=== PATIENT | female | born 1995 | race African-American/Black ===

== ENCOUNTER 2021-08-07 10:07 | Emergency (ER) | payer MEDICAID, OTHER ==
[~2021-08-07] VITALS: Ht 157.5 cm; Wt 54.4 kg
[2021-08-07 10:57] VITALS: BP 108/69
[2021-08-07] MEDS ORDERED: LORazepam 0.5 MG TAB PO ONE ×2 (11:15)
== END 2021-08-07 12:15 | disposition home or self-care (01) ==
LOC: ER 10:07
DX: F41.8 Other specified anxiety disorders (principal)
CPT/HCPCS: 71046

== ENCOUNTER 2022-08-21 13:12 | Emergency (ER) | payer MEDICAID ==
[~2022-08-21] VITALS: Ht 167.6 cm; Wt 56.1 kg
[2022-08-21 13:31] VITALS: BP 101/60
[2022-08-21 14:12] LABS: Urine Bacteria NONE SEEN /hpf (None Seen); Urine Blood 2+ /uL (Negative); Urine Specific Gravity 1.002 (1.001-1.035); Urine WBC <1 /hpf (0 - 5)
[2022-08-21 14:26] LABS: Basophils # (auto) 0.1 10 ^3/uL (0-0.2); Basophils % (auto) 1.3 % (0.0-2.0); Eosinophils # (auto) 0.1 10 ^3/uL (0-0.8); Hemoglobin 12.3 g/dL (12.2-16.2); Lymphocytes # (auto) 2.4 10 ^3/uL (0.4-5.4); Lymphocytes % (auto) 35.1 % (10.0-50.0); Mean Corpuscular Hemoglobin 29.2 pg (28.0-32.0); Mean Corpuscular Hgb Conc. 32.4 g/dL (32.0-36.0); Monocytes # (auto) 0.6 10 ^3/uL (0-1.3); Monocytes % (auto) 8.9 % (0.0-12.0); Neutrophils # (auto) 3.7 10 ^3/uL (1.6-8.6); Neutrophils % (auto) 52.7 % (37.0-80.0); Nucleated Red Blood Cells % 0.1 %; Red Blood Cells 4.22 10^6/uL (4.0-5.20); Red Cell Distribution Width 15.8 % (11.8-14.3)
== END 2022-08-21 14:14 | disposition left against medical advice (07) ==
LOC: ER 13:12
DX: R10.30 Lower abdominal pain, unspecified (principal); Z53.21 Procedure and treatment not carried out due to patient leaving prior to being seen by health care provider
CPT/HCPCS: 36415; 81001; 85025